=== PATIENT | male | born 1935 | race Caucasian/White ===

== ENCOUNTER 2017-03-03 16:15 | Observation (INO) | payer MEDICARE ==
[~2017-03-03] VITALS: Ht 188 cm; Wt 95.9 kg
[~2017-03-03 16:15] MED LIST: ALLOPURINOL100 MG OR; ATENOLOL50 MG OR; COLACE100 MG PO; DIOVAN HCT160 MG/25 OR; DIOVAN160 MG PO; FINASTERIDE5 M1 PO; HYDROCHLOROT25 MG OR; HYDROCHLOROT25 MG PO; K-DUR/KLOR-CON10 MEQ OR; LISINOPRIL20 MG PO; LISINOPRIL40 MG OR; LISINOPRIL5 MG PO; LORTAB 5 OR; NAPROSYN500 MG PO; PREVACID30 M1 OR; PRILOSEC20 MG PO; PRILOSEC20 MG/CAP PO; RANITIDINE150 M1 OR; SG ASA LOW81 MG OR; VICODIN1 TAB PO; ZOFRAN ODT4 MG OR
[2017-03-03 18:29] LABS: HEMATOCRIT 41.6 % (39.0-50.0); HEMOGLOBIN 14.8 g/dl (14.0-18.0); IMMATURE GRANULOCYTES 0.1 % (0.0-1.0); MEAN CELL VOLUME 93.9 fL CALC (80.0-100.0); MEAN CORPUSCULAR HGB 33.4 pG CALC (26.0-32.0); MEAN CORPUSCULAR HGB CONC 35.6 g/L CALC (32.0-36.0); NEUT# 4.88 thou/uL (1.82-7.42); RED BLOOD COUNT 4.43 mill/uL (4.70-6.10)
[2017-03-03 18:35] LABS: URINE BILIRUBIN - DIPSTICK NEGATIVE (NEGATIVE); URINE BLOOD DIPSTICK NEGATIVE (NEGATIVE); URINE CLARITY CLEAR; URINE COLOR YELLOW; URINE GLUCOSE - DIPSTICK NEGATIVE (NEGATIVE); URINE KETONE NEGATIVE (NEGATIVE); URINE LEUK ESTERASE NEGATIVE (NEGATIVE); URINE NITRITE - DIPSTICK NEGATIVE (Negative); URINE PH 5.5 (4.5-8.0); URINE PROTEIN - DIPSTICK NEGATIVE (NEG-TRACE); URINE UROBILINOGEN - DIPSTICK 0.2 E.U./dL (0.2)
[2017-03-03 18:47] LABS: ALBUMIN 4.1 g/dL (3.2-5.0); ALKALINE PHOSPHATASE 58 u/l (38-126); AMYLASE 91 u/l (30-110); ANION GAP 14 (6-22 (CALC)); BILIRUBIN, TOTAL 0.6 mg/dL (0.0-1.4); BUN 13 mg/dL (8-23); BUN/CREATININE RATIO 16 (12-20 (CALC)); CALCIUM 9.5 mg/dL (8.4-10.2); CARBON DIOXIDE 24 mmol/l (22-30); CHLORIDE 107 mmol/l (95-108); CREATININE 0.8 mg/dL (0.7-1.3); GFR > 60 ML/MIN (>=60 (CALC)); GFR FOR AFR.AMER. > 60 ML/MIN (>=60 (CALC)); GLUCOSE 126 mg/dL (82-115); LIPASE 158 u/l (23-300); POTASSIUM 3.8 mmol/l (3.5-5.1); SGOT/AST 27 u/l (19-48); SGPT/ALT 33 u/l (11-66); SODIUM 142 mmol/l (137-146); TOTAL PROTEIN 6.5 g/dL (6.3-8.2)
[2017-03-03] MEDS ORDERED: DOCUSATE CAL240 MG PO (18:48)
[2017-03-03 18:59] LABS: MYOGLOBIN 29 ng/mL (0 - 121)
[2017-03-04 07:20] VITALS: BP 137/71
[2017-03-04 15:27] VITALS: BP 156/80
[2017-03-04 20:17] VITALS: BP 136/82
[2017-03-05 04:11] VITALS: BP 145/67
[2017-03-05 05:56] LABS: HEMATOCRIT 43.3 % (39.0-50.0); HEMOGLOBIN 15.5 g/dl (14.0-18.0); MEAN CELL VOLUME 93.5 fL CALC (80.0-100.0); MEAN CORPUSCULAR HGB 33.5 pG CALC (26.0-32.0); MEAN CORPUSCULAR HGB CONC 35.8 g/L CALC (32.0-36.0); RED BLOOD COUNT 4.63 mill/uL (4.70-6.10); RED CELL DISTRI WIDTH 12.9 % (11.5-15.5)
[2017-03-05 06:19] LABS: CHOLESTEROL HDL RATIO 4.8 (<4.4 (CALC))
[2017-03-05 06:25] LABS: ANION GAP 15 (6-22 (CALC)); BUN 12 mg/dL (8-23); BUN/CREATININE RATIO 16 (12-20 (CALC)); CALCIUM 9.5 mg/dL (8.4-10.2); CARBON DIOXIDE 24 mmol/l (22-30); CHLORIDE 106 mmol/l (95-108); CREATININE 0.7 mg/dL (0.7-1.3); GFR > 60 ML/MIN (>=60 (CALC)); GFR FOR AFR.AMER. > 60 ML/MIN (>=60 (CALC)); GLUCOSE 138 mg/dL (82-115); POTASSIUM 3.9 mmol/l (3.5-5.1); SODIUM 142 mmol/l (137-146)
[2017-03-05 07:10] VITALS: BP 149/92
[2017-03-05 08:38] VITALS: BP 149/92
[2017-03-05] MEDS ORDERED: GLYCOLAX3350 N1 PO (11:28)
== END 2017-03-05 14:04 | disposition home or self-care (01) ==
LOC: ED 16:15 → ED-I 03-04 → ED 03-04 00:48 → MS2 03-04 00:49
PROVIDERS: Emergency Medicine; ADMIT Internal Medicine; ATTEND Internal Medicine
DX: R10.31 Right lower quadrant pain (principal); I10 Essential (primary) hypertension; M19.90 Unspecified osteoarthritis, unspecified site; R73.03 Prediabetes; K59.00 Constipation, unspecified; G89.29 Other chronic pain; M54.9 Dorsalgia, unspecified; K29.70 Gastritis, unspecified, without bleeding; R41.0 Disorientation, unspecified; F23 Brief psychotic disorder
CPT/HCPCS: Q9967

== ENCOUNTER 2017-04-12 06:49 | Day surgery (SDC) | payer MEDICARE ==
[~2017-04-12 06:49] MED LIST changes: +AMLODIPINE5 MG PO; +DOCUSATE CAL240 MG PO; +GLYCOLAX3350 N1 PO; +HYDROCO/APAP1 TA9 PO; +HYDROXYZ HCL25 MG PO
[2017-04-12 09:04] VITALS: BP 123/70
== END 2017-04-12 09:18 | disposition home or self-care (01) ==
LOC: ENDO 06:49 → ORM 08:00 → ENDO 09:18
PROVIDERS: ATTEND Surgery
PROC: 0DJD8ZZ Inspection of Lower Intestinal Tract, Via Natural or Artificial Opening Endoscopic (ICD-10-PCS; principal; 2017-04-12)
DX: R10.32 Left lower quadrant pain (principal); K57.30 Diverticulosis of large intestine without perforation or abscess without bleeding

== ENCOUNTER → 2018-05-03 | Outpatient (REF) | payer MEDICARE ==
[2018-05-03 09:38] LABS: HEMATOCRIT 42.9 % (39.0-50.0); HEMOGLOBIN 15.2 g/dl (14.0-18.0); IMMATURE GRANULOCYTES 0.4 % (0.0-5.0); MEAN CELL VOLUME 94.1 fL CALC (80.0-100.0); MEAN CORPUSCULAR HGB 33.3 pG CALC (26.0-32.0); MEAN CORPUSCULAR HGB CONC 35.4 g/L CALC (32.0-36.0); NEUT# 4.35 thou/uL (1.82-7.42); RED BLOOD COUNT 4.56 mill/uL (4.70-6.10); RED CELL DISTRI WIDTH 12.5 % (11.5-15.5)
[2018-05-03 10:06] LABS: ALBUMIN 4.3 g/dL (3.2-5.0); ALKALINE PHOSPHATASE 62 u/l (38-126); ANION GAP 15 (6-22 (CALC)); BILIRUBIN, TOTAL 1.1 mg/dL (0.0-1.4); BUN 18 mg/dL (8-23); BUN/CREATININE RATIO 23 (12-20 (CALC)); CALCULATED LDLCHOLESTEROL 96 mg/dL (62-129 (CALC)); CARBON DIOXIDE 26 mmol/l (22-30); CHLORIDE 103 mmol/l (95-108); CHOLESTEROL HDL RATIO 4.8 (<4.4 (CALC)); CREATININE 0.8 mg/dL (0.7-1.3); GFR > 60 ML/MIN (>=60 (CALC)); GFR FOR AFR.AMER. > 60 ML/MIN (>=60 (CALC)); HDL CHOLESTEROL 33 mg/dL (>=40); POTASSIUM 4.2 mmol/l (3.5-5.1); SGOT/AST 23 u/l (19-48); SODIUM 140 mmol/l (137-146); TOTAL CHOLESTEROL 159 mg/dl (0-199); TOTAL PROTEIN 6.5 g/dL (6.3-8.2); TOTAL TRIGLYCERIDES 153 mg/dl (30-149); VLDL CHOLESTROL 31 mg/dl (0-38 (CALC))
[2018-05-03 11:16] LABS: TSH, 3RD GENERATION 2.56 uIU/mL (0.47 - 4.68)
== END | disposition home or self-care (01) ==
LOC: LAB 09:08
PROVIDERS: ATTEND Internal Medicine
DX: I10 Essential (primary) hypertension (principal); Z12.5 Encounter for screening for malignant neoplasm of prostate

== ENCOUNTER → 2018-05-23 | Outpatient (REF) | payer MEDICARE | END | disposition home or self-care (01) | LOC: DI 12:49 | PROVIDERS: ATTEND Internal Medicine | DX: R09.02 Hypoxemia (principal) ==

== ENCOUNTER 2024-03-10 14:57 | Emergency (ER) | payer MEDICARE ==
[2024-03-10] VITALS (8 sets, daily range): BP systolic 126–158; BP diastolic 73–91
[~2024-03-10] VITALS: Ht 188 cm; Wt 90.0 kg
[2024-03-10 16:34] LABS: URINE BILIRUBIN - DIPSTICK Negative (NEGATIVE); URINE BLOOD DIPSTICK Negative (NEGATIVE); URINE GLUCOSE - DIPSTICK Negative (NEGATIVE); URINE KETONE Trace mg/dL (NEGATIVE); URINE LEUK ESTERASE Negative (NEGATIVE); URINE NITRITE - DIPSTICK Negative (Negative); URINE PH 5.5 (4.5-8.0); URINE PROTEIN - DIPSTICK Negative (NEG-TRACE); URINE UROBILINOGEN - DIPSTICK 0.2 E.U./dL (0.2)
[2024-03-10 16:37] LABS: URINE COLOR Yellow
[2024-03-10] MEDS ORDERED: traMADol HCL 50 MG/TAB PO ONE (17:35)
[2024-03-10 17:50] LABS: BASO% 0.5 % (0-3); EOS% 3.5 % (0-8); HEMATOCRIT 43.1 % (39.0-50.0); HEMOGLOBIN 14.5 g/dl (14.0-18.0); IMMATURE GRANULOCYTES 0.9 % (0.0-5.0); LYMPH% 16.2 % (15-41); MEAN CELL VOLUME 99.3 fL CALC (80.0-100.0); MEAN CORPUSCULAR HGB 33.4 pG CALC (26.0-32.0); MEAN CORPUSCULAR HGB CONC 33.6 g/dL CAL (32.0-36.0); MONO% 9.9 % (2-13); NEUT# 5.36 thou/uL (1.82-7.42); RED BLOOD COUNT 4.34 mill/uL (4.70-6.10); RED CELL DISTRI WIDTH 12.8 % (11.5-15.5)
[2024-03-10 18:07] LABS: ALBUMIN 4.1 g/dL (3.2-5.0); BILIRUBIN, TOTAL 0.8 mg/dL (0.2-1.3); POTASSIUM 4.5 mmol/l (3.5-5.1); TOTAL PROTEIN 6.4 g/dL (6.3-8.2)
[2024-03-10 18:11] LABS: CREATININE 0.7 mg/dL (0.7-1.3)
[2024-03-10] MEDS ORDERED: TAMSULOSIN0.4 MG PO (18:20)
[2024-03-10] MEDS ORDERED: BACTRIM DS1 TAB PO (18:20)
== END 2024-03-10 18:50 | disposition home or self-care (01) ==
LOC: ED 14:57
PROVIDERS: Nurse Practitioner
DX: R35.0 Frequency of micturition (principal); R30.0 Dysuria; I10 Essential (primary) hypertension; F03.90 Unspecified dementia, unspecified severity, without behavioral disturbance, psychotic disturbance, mood disturbance, and anxiety

== ENCOUNTER 2024-03-13 13:33 | Emergency (ER) | payer MEDICARE ==
[2024-03-13] VITALS (7 sets, daily range): BP systolic 101–140; BP diastolic 59–80
[~2024-03-13] VITALS: Ht 188 cm; Wt 102.0 kg
[~2024-03-13 13:33] MED LIST changes: +BACTRIM DS1 TAB PO; +TAMSULOSIN0.4 MG PO
[2024-03-13 14:01] LABS: BASO% 0.2 % (0-3); EOS% 0.6 % (0-8); HEMATOCRIT 40.5 % (39.0-50.0); HEMOGLOBIN 13.2 g/dl (14.0-18.0); IMMATURE GRANULOCYTES 0.2 % (0.0-5.0); LYMPH% 4.3 % (15-41); MEAN CELL VOLUME 104.1 fL CALC (80.0-100.0); MEAN CORPUSCULAR HGB 33.9 pG CALC (26.0-32.0); MEAN CORPUSCULAR HGB CONC 32.6 g/dL CAL (32.0-36.0); MONO% 10.5 % (2-13); NEUT# 6.86 thou/uL (1.82-7.42); NEUT% 84.2 % (42-76); RED BLOOD COUNT 3.89 mill/uL (4.70-6.10)
[2024-03-13 14:14] LABS: ALBUMIN 3.9 g/dL (3.2-5.0); ALKALINE PHOSPHATASE 31 u/l (38-126); ANION GAP 13 (6-22 (CALC)); BILIRUBIN, TOTAL 1.2 mg/dL (0.2-1.3); BUN 17 mg/dL (8-23); BUN/CREATININE RATIO 22 (12-20 (CALC)); CARBON DIOXIDE 19 mmol/l (22-30); CHLORIDE 105 mmol/l (95-108); CREATININE 0.8 mg/dL (0.7-1.3); ESTIMATED GFR 85 ML/MIN (>=90 (CALC)); SGOT/AST 47 u/l (19-48); SODIUM 132 mmol/l (137-146); TOTAL PROTEIN 6.6 g/dL (6.3-8.2)
[2024-03-13] MEDS ORDERED: LISINOPRIL40 MG PO (14:21)
[2024-03-13] MEDS ORDERED: ARICEPT10 MG PO (14:22)
[2024-03-13] MEDS ORDERED: MEMANTINE HYDRO10 MG (14:28)
[2024-03-13] MEDS ORDERED: PROSCAR5 MG PO (14:28)
[2024-03-13] MEDS ORDERED: TOPROL XL50 MG PO (14:29)
[2024-03-13 15:20] LABS: URINE BILIRUBIN - DIPSTICK Negative (NEGATIVE); URINE BLOOD DIPSTICK Negative (NEGATIVE); URINE GLUCOSE - DIPSTICK Negative (NEGATIVE); URINE KETONE Negative (NEGATIVE); URINE LEUK ESTERASE Negative (NEGATIVE); URINE NITRITE - DIPSTICK Negative (Negative); URINE PROTEIN - DIPSTICK Negative (NEG-TRACE); URINE SPECIFIC GRAVITY >=1.030; URINE UROBILINOGEN - DIPSTICK 0.2 E.U./dL (0.2)
[2024-03-13 15:21] LABS: URINE COLOR Yellow
== END 2024-03-13 16:28 | disposition home or self-care (01) ==
LOC: ED 13:33
PROVIDERS: Family Medicine
DX: R29.6 Repeated falls (principal); I10 Essential (primary) hypertension; F03.90 Unspecified dementia, unspecified severity, without behavioral disturbance, psychotic disturbance, mood disturbance, and anxiety; Z91.81 History of falling

== ENCOUNTER 2024-06-15 13:55 | Emergency (ER) | payer MEDICARE ==
[~2024-06-15] VITALS: Ht 188 cm; Wt 89.0 kg
[~2024-06-15 13:55] MED LIST changes: +ARICEPT10 MG PO; +LISINOPRIL40 MG PO; +MEMANTINE HYDRO10 MG; +PROSCAR5 MG PO; +TOPROL XL50 MG PO
[2024-06-15 14:01] VITALS: BP 149/67
[2024-06-15] MEDS ORDERED: SODIUM CHLORIDE 0.9% 1,000 ML IV ONE (14:20)
[2024-06-15 14:31] VITALS: BP 128/70
[2024-06-15 14:48] LABS: BASO% 0.4 % (0-3); EOS% 4.6 % (0-8); HEMATOCRIT 40.9 % (39.0-50.0); HEMOGLOBIN 13.8 g/dl (14.0-18.0); IMMATURE GRANULOCYTES 0.2 % (0.0-5.0); LYMPH% 19.9 % (15-41); MEAN CELL VOLUME 97.6 fL CALC (80.0-100.0); MEAN CORPUSCULAR HGB 32.9 pG CALC (26.0-32.0); MEAN CORPUSCULAR HGB CONC 33.7 g/dL CAL (32.0-36.0); MONO% 9.7 % (2-13); NEUT# 5.4 thou/uL (1.82-7.42); NEUT% 65.2 % (42-76); RED BLOOD COUNT 4.19 mill/uL (4.70-6.10); RED CELL DISTRI WIDTH 12.9 % (11.5-15.5)
[2024-06-15 14:50] LABS: URINE BILIRUBIN - DIPSTICK Negative (NEGATIVE); URINE BLOOD DIPSTICK Negative (NEGATIVE); URINE GLUCOSE - DIPSTICK Negative (NEGATIVE); URINE KETONE Negative (NEGATIVE); URINE LEUK ESTERASE Negative (NEGATIVE); URINE NITRITE - DIPSTICK Negative (Negative); URINE PROTEIN - DIPSTICK Negative (NEG-TRACE); URINE UROBILINOGEN - DIPSTICK 0.2 E.U./dL (0.2)
[2024-06-15 14:51] LABS: URINE COLOR Yellow
[2024-06-15 14:59] LABS: ALBUMIN 3.9 g/dL (3.2-5.0); BILIRUBIN, TOTAL 0.8 mg/dL (0.2-1.3); CREATININE 0.6 mg/dL (0.7-1.3); POTASSIUM 4.8 mmol/l (3.5-5.1); TOTAL PROTEIN 6.4 g/dL (6.3-8.2)
[2024-06-15 15:01] VITALS: BP 128/72
[2024-06-15 15:30] VITALS: BP 138/75
[2024-06-15 16:00] VITALS: BP 125/69
[2024-06-15 16:31] VITALS: BP 142/84
== END 2024-06-15 17:37 | disposition home or self-care (01) ==
LOC: ED 13:55
PROVIDERS: Nurse Practitioner Acute Care
DX: F03.911 Unspecified dementia, unspecified severity, with agitation (principal); I10 Essential (primary) hypertension; E11.9 Type 2 diabetes mellitus without complications; I48.91 Unspecified atrial fibrillation